=== PATIENT | female | born 1970 | race Caucasian/White ===

== ENCOUNTER 2017-01-22 16:51 | Emergency (ER) | payer OTHER ==
[~2017-01-22] VITALS: Ht 165.1 cm; Wt 67.1 kg
[2017-01-22 21:39] VITALS: BP 107/66
== END 2017-01-22 21:39 | disposition home or self-care (01) ==
LOC: ED 16:51
DX: G43.909 Migraine, unspecified, not intractable, without status migrainosus (principal)
CPT/HCPCS: J1885; J2765; J7030

== ENCOUNTER 2019-07-23 22:09 | Emergency (ER) | payer OTHER ==
[~2019-07-23] VITALS: Ht 167.6 cm; Wt 69.9 kg
[2019-07-23 22:21] VITALS: BP 123/75; Ht 167.6 cm; Wt 69.9 kg
[2019-07-23 22:40] LABS: UA SPECIFIC GRAVITY 1.015 (1.005-1.035); microscopic required? YES; urine erythrocyte NEGATIVE (NEGATIVE)
[2019-07-23 23:58] LABS: BASOPHIL % 0.3 % (0-2); PLATELET COUNT 292 x10^3mcL (130-400); RED CELL DISTRIBUTION WIDTH 14.6 % (11.5-14.5)
[2019-07-24 00:09] LABS: CALCIUM 8.8 mg/dL (8.5-10.1); CARBON DIOXIDE 28.4 mmol/L (21-32); CHLORIDE SERUM 109 mmol/L (98-107); GFR1 > 60 mL/min; GLUCOSE SERUM 104 mg/dL (74-106); POTASSIUM SERUM 4.3 mmol/L (3.5-5.1); SODIUM SERUM 146 mmol/L (136-145)
[2019-07-24 00:17] LABS: ALBUMIN 3.5 g/dL (3.4-5.0); ALKALINE PHOSPHATASE 97 U/L (46-116); ALT/SGPT 29 U/L (14-59); AST/SGOT 18 U/L (15-37); BILIRUBIN TOTAL 0.3 mg/dL (0.20-1.00); LIPASE 200 IU/L (73-393); TOTAL PROTEIN, SERUM 7.6 g/dL (6.4-8.2)
== END 2019-07-24 03:20 | disposition home or self-care (01) ==
LOC: ED 22:09
PROVIDERS: Emergency Medicine
DX: R10.811 Right upper quadrant abdominal tenderness (principal); H10.9 Unspecified conjunctivitis; G43.909 Migraine, unspecified, not intractable, without status migrainosus
CPT/HCPCS: 36415; J1885; Q0092